=== PATIENT | female | born 1945 | race Caucasian/White ===

== ENCOUNTER 2016-03-25 11:37 | Emergency (ER) | payer MEDICARE, BC ==
[~2016-03-25 11:37] MED LIST: COMBIVENT RESPI1 SPR INH; D3-5050000 IU PO; DALIRESP500 MCG PO; DELTASONE20 M1 PO; FLONASE0.05 MG/AC NAS; FLUTICASON0.05 MG/AC NS; IPRATROPIUM BROM3 M1 INH; MUCINEX DM 30 M1 TE1 PO; MULTIPLE VITAMI1 TAB PO; NYSTATIN 100MU/M1 ML PO; PANTOPRAZOLE SO40 MG PO; PROVENTIL0.09 MG/Ac INH; RECLAST5 MG/1001 IV; REMERON SOL15 MG/TAB PO; REMERON30 MG PO; RT ADVAIR INH; RT SPIRIVA INH18 MCG IH; SINGULAIR PO; SINGULAIR10 MG PO; ZOCOR40 M1 PO; ZOCOR40 MG PO; [UNRECOGNIZED DRUG - OTHER] INH
[2016-03-25] MEDS ORDERED: PRAVACHOL 40MG40 MG PO (11:53)
[2016-03-25] MEDS ORDERED: XARELTO20 MG PO (11:53)
[2016-03-25 12:42] VITALS: BP 139/78
== END 2016-03-25 12:40 | disposition home or self-care (01) ==
LOC: ED 11:37
DX: J00 Acute nasopharyngitis [common cold] (principal); J44.9 Chronic obstructive pulmonary disease, unspecified

== ENCOUNTER → 2017-03-20 | Outpatient (CLI) | payer MEDICARE, BC ==
[~2017-03-20] MED LIST changes: +PRAVACHOL 40MG40 MG PO; +XARELTO20 MG PO
== END ==
LOC: RAD 08:30
DX: N63.0 Unspecified lump in unspecified breast (principal)

== ENCOUNTER → 2017-12-18 | Outpatient (CLI) | payer MEDICARE, BC ==
[2017-12-18 12:26] LABS: BASO # 0.1 (0.02-0.10); EOS # 0.2 (0.04-0.40); EOS % 2.4 % (1.0-5.0); HEMATOCRIT 31.9 % (37.0-47.0); HEMOGLOBIN 9.8 g/dL (12.5-16.0); MEAN CELL VOLUME 102 fl (78-100); MEAN CORPUSCULAR HEMOGLOBIN 31 pg (27-31); MEAN CORPUSCULAR HGB CONC 31 g/dL (33-37); MEAN PLATELET VOLUME 11.4 fl (7.4-10.4); MONO # 0.6 (0.20-0.80); NEU # 4.8 (1.40-6.50); PLATELET COUNT 249 K/mm3 (130-400); RED BLOOD COUNT 3.12 M/mm3 (4.10-5.30); RED CELL DISTRIBUTION WIDTH 13.1 % (11.5-14.5); WHITE BLOOD COUNT 6.7 K/mm3 (4.8-10.8)
[2017-12-18 12:41] LABS: CALCIUM 9.8 mg/dL (8.4-10.2); POTASSIUM 3.9 mmol/L (3.6-5.0)
== END ==
LOC: RAD 12:05
PROVIDERS: Nurse Practitioner Family
DX: R91.8 Other nonspecific abnormal finding of lung field (principal); R06.02 Shortness of breath

== ENCOUNTER → 2018-05-12 | Outpatient (CLI) | payer MEDICARE, BC ==
[2018-05-12 16:08] LABS: EOS # 0.1 (0.04-0.40); EOS % 0.8 % (1.0-5.0); HEMATOCRIT 30.8 % (37.0-47.0); MEAN CELL VOLUME 103 fl (78-100); MEAN CORPUSCULAR HEMOGLOBIN 30 pg (27-31); MEAN PLATELET VOLUME 11.7 fl (7.4-10.4); MONO # 0.6 (0.20-0.80); PLATELET COUNT 191 K/mm3 (130-400); RED BLOOD COUNT 2.99 M/mm3 (4.10-5.30); RED CELL DISTRIBUTION WIDTH 13.3 % (11.5-14.5); WHITE BLOOD COUNT 7.7 K/mm3 (4.8-10.8)
[2018-05-12 16:29] LABS: URINE APPEARANCE CLEAR; URINE BILIRUBIN NEGATIVE (NEGATIVE); URINE BLOOD NEGATIVE (NEGATIVE); URINE COLOR YELLOW; URINE GLUCOSE NEGATIVE (NEGATIVE); URINE KETONE NEGATIVE (NEGATIVE); URINE LEUKOCYTE ESTERASE NEGATIVE (NEGATIVE); URINE NITRATE NEGATIVE (NEGATIVE); URINE PROTEIN(semi-quant) TRACE mg/dL (NEGATIVE); URINE UROBILINOGEN NORMAL (NORMAL)
[2018-05-12 17:20] LABS: MEAN CORPUSCULAR HGB CONC 29 g/dL (33-37)
[2018-05-12 17:21] LABS: ERYTHROCYTE SEDIMENTATION RATE 69 mm/hr (0-30)
[2018-05-12 17:45] LABS: ALBUMIN 4.1 g/dL (3.5-5.0); CALCIUM 9.9 mg/dL (8.4-10.2); POTASSIUM 4.2 mmol/L (3.6-5.0); TOTAL BILIRUBIN 0.4 mg/dL (0.2-1.3); TOTAL PROTEIN 7.1 g/dL (6.3-8.2)
== END ==
LOC: LAB 14:43
PROVIDERS: Internal Medicine
DX: Z12.11 Encounter for screening for malignant neoplasm of colon (principal); E11.9 Type 2 diabetes mellitus without complications; M81.0 Age-related osteoporosis without current pathological fracture; K92.2 Gastrointestinal hemorrhage, unspecified

== ENCOUNTER → 2018-05-18 | Outpatient (CLI) | payer MEDICARE, BC | LOC: LAB 13:15 | DX: Z12.11 Encounter for screening for malignant neoplasm of colon (principal); E11.9 Type 2 diabetes mellitus without complications; K92.2 Gastrointestinal hemorrhage, unspecified ==

== ENCOUNTER → 2018-06-02 | Outpatient (CLI) | payer MEDICARE, BC | LOC: RAD 13:35 → MAMMO 14:30 | DX: Z13.820 Encounter for screening for osteoporosis (principal); Z12.31 Encounter for screening mammogram for malignant neoplasm of breast; M81.0 Age-related osteoporosis without current pathological fracture ==

== ENCOUNTER → 2018-06-02 | Outpatient (CLI) | payer MEDICARE, BC | LOC: MAMMO 13:34 | DX: Z12.31 Encounter for screening mammogram for malignant neoplasm of breast (principal) ==

== ENCOUNTER → 2018-06-25 | Outpatient (CLI) | payer MEDICARE, BC ==
[2018-06-25 15:21] LABS: CALCIUM 9.9 mg/dL (8.4-10.2)
== END ==
LOC: LAB 14:47
PROVIDERS: Internal Medicine Rheumatology
DX: Z79.899 Other long term (current) drug therapy (principal)

== ENCOUNTER → 2018-11-10 | Outpatient (CLI) | payer MEDICARE, BC ==
[2018-11-10 15:11] LABS: EOS # 0.1 (0.04-0.40); HEMATOCRIT 29.8 % (37.0-47.0); HEMOGLOBIN 8.7 g/dL (12.5-16.0); LYMPH# 1.1 (1.50-4.00); MEAN CELL VOLUME 104 fl (78-100); MEAN CORPUSCULAR HEMOGLOBIN 30 pg (27-31); MEAN PLATELET VOLUME 11.3 fl (7.4-10.4); MONO # 0.6 (0.20-0.80); NEU # 4.5 (1.40-6.50); PLATELET COUNT 177 K/mm3 (130-400); RED BLOOD COUNT 2.87 M/mm3 (4.10-5.30); RED CELL DISTRIBUTION WIDTH 13.3 % (11.5-14.5); WHITE BLOOD COUNT 6.2 K/mm3 (4.8-10.8)
[2018-11-10 15:21] LABS: MEAN CORPUSCULAR HGB CONC 29 g/dL (33-37)
[2018-11-10 15:31] LABS: POTASSIUM 3.9 mmol/L (3.5-5.1)
[2018-11-10 15:32] LABS: ALBUMIN 4.1 g/dL (3.4-4.8)
[2018-11-10 15:33] LABS: CALCIUM 9.7 mg/dL (8.3-10.5)
[2018-11-10 15:34] LABS: TOTAL PROTEIN 7.2 g/dL (6.2-8.1)
[2018-11-10 15:36] LABS: TOTAL BILIRUBIN 0.4 mg/dL (0.2-1.2)
[2018-11-10 16:19] LABS: ERYTHROCYTE SEDIMENTATION RATE 66 mm/hr (0-30)
== END ==
LOC: LAB 14:44
PROVIDERS: Internal Medicine
DX: E11.9 Type 2 diabetes mellitus without complications (principal); K92.2 Gastrointestinal hemorrhage, unspecified; M81.0 Age-related osteoporosis without current pathological fracture

== ENCOUNTER 2019-02-01 13:29 | Emergency (ER) | payer MEDICARE, BC ==
[2019-02-01] MEDS ORDERED: TORSEMIDE20 M1 PO (14:01)
[2019-02-01] MEDS ORDERED: SINGULAIR PO (14:01)
[2019-02-01] MEDS ORDERED: STIOLTO RESPIMAT4 GM IH (14:02)
[2019-02-01] MEDS ORDERED: ADEMPAS2.5 MG PO (14:02)
[2019-02-01] MEDS ORDERED: PREDNISONE 5MG5 MG PO (14:03)
[2019-02-01 14:10] LABS: HEMATOCRIT 30.9 % (37.0-47.0); HEMOGLOBIN 9.2 g/dL (12.5-16.0); MEAN CELL VOLUME 103 fl (78-100); MEAN CORPUSCULAR HEMOGLOBIN 31 pg (27-31); MEAN CORPUSCULAR HGB CONC 30 g/dL (33-37); PLATELET COUNT 154 K/mm3 (130-400); RED BLOOD COUNT 3.01 M/mm3 (4.10-5.30); RED CELL DISTRIBUTION WIDTH 14.2 % (11.5-14.5); WHITE BLOOD COUNT 14.1 K/mm3 (4.8-10.8)
[2019-02-01 14:12] LABS: MEAN PLATELET VOLUME 12.4 fl (7.4-10.4)
[2019-02-01 14:16] LABS: POTASSIUM 3.8 mmol/L (3.5-5.1); SODIUM 139 mmol/L (136-145)
[2019-02-01 14:17] LABS: ALBUMIN 3.9 g/dL (3.4-4.8); CALCIUM 9.8 mg/dL (8.3-10.5)
[2019-02-01 14:19] LABS: TOTAL PROTEIN 7.1 g/dL (6.2-8.1)
[2019-02-01 14:20] LABS: CARBON DIOXIDE 30 mmol/L (23-31); GLUCOSE 114 mg/dL (65-105)
[2019-02-01 14:21] LABS: TOTAL BILIRUBIN 0.5 mg/dL (0.2-1.2)
[2019-02-01 14:24] LABS: AST-SGOT 24 U/L (5-34)
[2019-02-01 14:26] LABS: LYMPHOCYTE 6 % (20-51); MONOCYTE 10 % (3-10); NEUTROPHILS 84 % (42-75)
[2019-02-01 14:27] LABS: ALT/SGPT 18 U/L (0-55)
[2019-02-01] MEDS ORDERED: 24HR ALLERGY REL5 MG PO (14:28)
[2019-02-01 14:30] LABS: HYPOCHROMIA 2+
[2019-02-01 14:33] LABS: TROPONIN-I < 0.03 ng/mL (<0.030)
[2019-02-01 18:05] VITALS: BP 123/65
== END 2019-02-01 18:00 | disposition short-term general hospital (02) ==
LOC: ED 13:29
PROVIDERS: Nurse Practitioner Primary Care
DX: J96.20 Acute and chronic respiratory failure, unspecified whether with hypoxia or hypercapnia (principal); J44.1 Chronic obstructive pulmonary disease with (acute) exacerbation; E11.9 Type 2 diabetes mellitus without complications; G47.30 Sleep apnea, unspecified; M32.9 Systemic lupus erythematosus, unspecified; I27.20 Pulmonary hypertension, unspecified; Z79.01 Long term (current) use of anticoagulants; Z86.718 Personal history of other venous thrombosis and embolism; Z87.891 Personal history of nicotine dependence
CPT/HCPCS: J1956; J2930

== ENCOUNTER → 2019-02-16 | Outpatient (CLI) | payer MEDICARE, BC ==
[2019-02-01 18:05] VITALS: BP 123/65
[~2019-02-16] MED LIST changes: +24HR ALLERGY REL5 MG PO; +ADEMPAS2.5 MG PO; +PREDNISONE 5MG5 MG PO; +STIOLTO RESPIMAT4 GM IH; +TORSEMIDE20 M1 PO
[2019-02-16 08:48] LABS: BASO # 0.1 (0.02-0.10); EOS # 0.3 (0.04-0.40); HEMATOCRIT 33.6 % (37.0-47.0); HEMOGLOBIN 9.6 g/dL (12.5-16.0); LYMPH# 2.2 (1.50-4.00); MEAN CELL VOLUME 104 fl (78-100); MEAN CORPUSCULAR HEMOGLOBIN 30 pg (27-31); MEAN PLATELET VOLUME 10.8 fl (7.4-10.4); MONO # 1.5 (0.20-0.80); PLATELET COUNT 263 K/mm3 (130-400); RED BLOOD COUNT 3.22 M/mm3 (4.10-5.30); RED CELL DISTRIBUTION WIDTH 14.7 % (11.5-14.5)
[2019-02-16 09:02] LABS: MEAN CORPUSCULAR HGB CONC 29 g/dL (33-37); NEU # 9.8 (1.40-6.50); POTASSIUM 3.7 mmol/L (3.5-5.1)
[2019-02-16 09:04] LABS: TOTAL PROTEIN 7.2 g/dL (6.2-8.1)
[2019-02-16 09:06] LABS: TOTAL BILIRUBIN 0.3 mg/dL (0.2-1.2)
[2019-02-16 09:11] LABS: MAGNESIUM 1.96 mg/dL (1.60-2.60)
== END ==
LOC: LAB 08:30
PROVIDERS: Internal Medicine
DX: E11.9 Type 2 diabetes mellitus without complications (principal)

== ENCOUNTER → 2019-05-04 | Outpatient (CLI) | payer MEDICARE, BC ==
[2019-05-04 14:24] LABS: HEMATOCRIT 33.8 % (37.0-47.0); MEAN CELL VOLUME 104 fl (78-100); MEAN CORPUSCULAR HEMOGLOBIN 31 pg (27-31); MEAN CORPUSCULAR HGB CONC 30 g/dL (33-37); PLATELET COUNT 130 K/mm3 (130-400); RED BLOOD COUNT 3.26 M/mm3 (4.10-5.30); RED CELL DISTRIBUTION WIDTH 12.2 % (11.5-14.5); WHITE BLOOD COUNT 9.3 K/mm3 (4.8-10.8)
[2019-05-04 14:28] LABS: MEAN PLATELET VOLUME 12.2 fl (7.4-10.4)
[2019-05-04 14:37] LABS: LYMPHOCYTE 12 % (20-51); MONOCYTE 10 % (3-10); NEUTROPHILS 74 % (42-75)
[2019-05-04 14:57] LABS: POTASSIUM 3.1 mmol/L (3.5-5.1)
[2019-05-04 14:58] LABS: ALBUMIN 4.2 g/dL (3.4-4.8)
[2019-05-04 15:00] LABS: TOTAL PROTEIN 7.5 g/dL (6.2-8.1)
[2019-05-04 15:02] LABS: TOTAL BILIRUBIN 0.5 mg/dL (0.2-1.2)
== END ==
LOC: LAB 14:07
PROVIDERS: Internal Medicine
DX: E11.9 Type 2 diabetes mellitus without complications (principal); K92.2 Gastrointestinal hemorrhage, unspecified; M81.0 Age-related osteoporosis without current pathological fracture

== ENCOUNTER → 2019-07-27 | Outpatient (CLI) | payer MEDICARE, BC ==
[2019-07-27 17:32] LABS: POTASSIUM 4.1 mmol/L (3.5-5.1)
[2019-07-27 17:33] LABS: CALCIUM 9.9 mg/dL (8.3-10.5)
[2019-07-27 17:39] LABS: MAGNESIUM 2.2 mg/dL (1.60-2.60)
== END ==
LOC: LAB 15:36
PROVIDERS: Internal Medicine
DX: E87.6 Hypokalemia (principal); Z79.899 Other long term (current) drug therapy

== ENCOUNTER → 2019-10-28 | Outpatient (CLI) | payer MEDICARE, BC ==
[2019-10-28 15:06] LABS: BASO # 0.1 (0.02-0.10); EOS # 0.1 (0.04-0.40); EOS % 1.2 % (1.0-5.0); HEMATOCRIT 32.8 % (37.0-47.0); HEMOGLOBIN 9.5 g/dL (12.5-16.0); LYMPH# 1.4 (1.50-4.00); MEAN CELL VOLUME 104 fl (78-100); MEAN CORPUSCULAR HEMOGLOBIN 30 pg (27-31); MONO # 0.7 (0.20-0.80); NEU # 6.9 (1.40-6.50); PLATELET COUNT 227 K/mm3 (130-400); RED BLOOD COUNT 3.17 M/mm3 (4.10-5.30); RED CELL DISTRIBUTION WIDTH 12.5 % (11.5-14.5); WHITE BLOOD COUNT 9.3 K/mm3 (4.8-10.8)
[2019-10-28 15:08] LABS: ALBUMIN 4.4 g/dL (3.4-4.8)
[2019-10-28 15:09] LABS: CALCIUM 9.6 mg/dL (8.3-10.5)
[2019-10-28 15:10] LABS: TOTAL PROTEIN 7.7 g/dL (6.2-8.1)
[2019-10-28 15:12] LABS: MEAN CORPUSCULAR HGB CONC 29 g/dL (33-37); TOTAL BILIRUBIN 0.3 mg/dL (0.2-1.2)
[2019-10-28 15:16] LABS: MAGNESIUM 1.96 mg/dL (1.60-2.60)
== END ==
LOC: LAB 14:22
PROVIDERS: Internal Medicine
DX: E11.9 Type 2 diabetes mellitus without complications (principal); K92.2 Gastrointestinal hemorrhage, unspecified; M81.0 Age-related osteoporosis without current pathological fracture; E87.6 Hypokalemia

== ENCOUNTER → 2019-12-29 | Outpatient (CLI) | payer MEDICARE, BC | LOC: MAMMO 14:15 | DX: Z12.31 Encounter for screening mammogram for malignant neoplasm of breast (principal) ==

== ENCOUNTER → 2020-06-30 | Outpatient (CLI) | payer MEDICARE, BC ==
[2020-06-30 16:37] LABS: POTASSIUM 3.5 mmol/L (3.5-5.1)
[2020-06-30 16:38] LABS: ALBUMIN 4.1 g/dL (3.4-4.8)
[2020-06-30 16:39] LABS: CALCIUM 9.6 mg/dL (8.3-10.5)
[2020-06-30 16:40] LABS: TOTAL PROTEIN 7.3 g/dL (6.2-8.1)
[2020-06-30 16:42] LABS: TOTAL BILIRUBIN 0.4 mg/dL (0.2-1.2)
== END ==
LOC: LAB 15:50
PROVIDERS: Internal Medicine
DX: E11.9 Type 2 diabetes mellitus without complications (principal); E78.2 Mixed hyperlipidemia; M81.0 Age-related osteoporosis without current pathological fracture; K90.9 Intestinal malabsorption, unspecified

== ENCOUNTER → 2021-03-12 | Outpatient (CLI) | payer MEDICARE, BC ==
[2021-03-12 10:51] LABS: POTASSIUM 3.9 mmol/L (3.5-5.1)
[2021-03-12 10:52] LABS: ALBUMIN 4.1 g/dL (3.4-4.8)
[2021-03-12 10:53] LABS: CALCIUM 9.2 mg/dL (8.3-10.5)
[2021-03-12 10:54] LABS: TOTAL PROTEIN 7.6 g/dL (6.2-8.1)
[2021-03-12 10:56] LABS: TOTAL BILIRUBIN 0.4 mg/dL (0.2-1.2); URINE APPEARANCE CLEAR; URINE COLOR YELLOW
[2021-03-12 10:57] LABS: URINE BILIRUBIN NEGATIVE (NEGATIVE); URINE BLOOD NEGATIVE (NEGATIVE); URINE GLUCOSE NEGATIVE (NEGATIVE); URINE KETONE NEGATIVE (NEGATIVE); URINE LEUKOCYTE ESTERASE 1+ (NEGATIVE); URINE MUCUS PRESENT (NOT PRESENT); URINE NITRATE NEGATIVE (NEGATIVE); URINE PROTEIN(semi-quant) TRACE (NEGATIVE); URINE UROBILINOGEN NORMAL (NORMAL)
[2021-03-12 11:00] LABS: MAGNESIUM 1.86 mg/dL (1.60-2.60)
== END ==
LOC: LAB 10:11
PROVIDERS: Internal Medicine
DX: I27.24 Chronic thromboembolic pulmonary hypertension (principal); E78.2 Mixed hyperlipidemia; E11.9 Type 2 diabetes mellitus without complications; K90.9 Intestinal malabsorption, unspecified

== ENCOUNTER → 2021-07-17 | Outpatient (CLI) | payer MEDICARE, BC | LOC: MAMMO 11:28 | DX: Z12.31 Encounter for screening mammogram for malignant neoplasm of breast (principal) ==

== ENCOUNTER → 2021-11-09 | Outpatient (CLI) | payer MEDICARE, BC ==
[~2021-11-09] MED LIST changes: +DULOXETINE60 MG PO; +LEVOFLOXACIN500 M1 PO; +POTASSIUM CH2 MEQ/ML PO; +SIMVASTATIN40 M1 PO; +SINGULAIR 110 MG/TAB PO; +TORSEMIDE10 M1 PO
[2021-11-09 11:08] LABS: BASO # 0.07 K/mm3 (0.02-0.10); EOS # 0.27 K/mm3 (0.04-0.40); HEMATOCRIT 33.3 % (37.0-47.0); HEMOGLOBIN 9.5 g/dL (12.5-16.0); LYMPH# 1.22 K/mm3 (1.50-4.00); MEAN CELL VOLUME 103 fl (78-100); MEAN CORPUSCULAR HEMOGLOBIN 29 pg (27-31); MEAN CORPUSCULAR HGB CONC 29 g/dL (33-37); MEAN PLATELET VOLUME 11.2 fl (7.4-10.4); MONO # 0.85 K/mm3 (0.20-0.80); NEU # 4.28 K/mm3 (1.40-6.50); PLATELET COUNT 297 K/mm3 (130-400); RED BLOOD COUNT 3.23 M/mm3 (4.10-5.30); RED CELL DISTRIBUTION WIDTH 16.9 % (11.5-14.5); WHITE BLOOD COUNT 6.7 K/mm3 (4.8-10.8)
[2021-11-09 11:14] LABS: POTASSIUM 3.9 mmol/L (3.5-5.1)
[2021-11-09 11:15] LABS: ALBUMIN 4.4 g/dL (3.4-4.8)
[2021-11-09 11:16] LABS: CALCIUM 9.5 mg/dL (8.3-10.5)
[2021-11-09 11:17] LABS: TOTAL PROTEIN 7.9 g/dL (6.2-8.1)
[2021-11-09 11:19] LABS: TOTAL BILIRUBIN 0.4 mg/dL (0.2-1.2)
[2021-11-09 11:24] LABS: MAGNESIUM 1.86 mg/dL (1.60-2.60)
[2021-11-09 13:06] LABS: ERYTHROCYTE SEDIMENTATION RATE 89 mm/hr (0-30)
== END ==
LOC: LAB 10:48
PROVIDERS: Internal Medicine
DX: I27.24 Chronic thromboembolic pulmonary hypertension (principal); M81.0 Age-related osteoporosis without current pathological fracture; E11.9 Type 2 diabetes mellitus without complications; E78.2 Mixed hyperlipidemia; J43.9 Emphysema, unspecified; K90.9 Intestinal malabsorption, unspecified; N39.46 Mixed incontinence